=== PATIENT | female | born 1975 | race Caucasian/White ===

== ENCOUNTER 2018-01-04 07:14 | Day surgery (SDC) | payer BC ==
[2018-01-03 11:35] VITALS: BMI 38.3
[2018-01-04] MEDS ORDERED: Lidocaine 2% PF Inj 2 ML VIAL ONE (07:17)
[2018-01-04] MEDS ORDERED: Bupivacaine/Epinephrine 0.25% 30 ML VIAL ONE (07:17)
[2018-01-04] MEDS ORDERED: Bacitracin Zinc Ointment 30 gm TUBE ONE (07:17)
[2018-01-04] MEDS ORDERED: CEFAZOLIN/Water 2 GM/20 ML SYRINGE ONE (07:29)
[2018-01-04] MEDS ORDERED: Fentanyl 100 MCG/2 ML VIAL ONE (07:44)
[2018-01-04] MEDS ORDERED: Midazolam HCl 2 mg/2 ml Vial ONE (07:44)
[2018-01-04] MEDS ORDERED: Promethazine HCl 25 MG/ML VIAL ONE (09:42)
[2018-01-04] MEDS ORDERED: Lidocaine 1% PF 5 ML VIAL ONE (11:45)
[2018-01-04] MEDS ORDERED: Ondansetron HCl/PF 4 MG/2 ML Vial ONE (11:45)
[2018-01-04] MEDS ORDERED: PHENYLEPHRINE-NS 100 MCG/ML 10 ML SYRINGE ONE (11:45)
[2018-01-04] MEDS ORDERED: Dexamethasone 20 MG/5 ML VIAL ONE (11:45)
[2018-01-04] MEDS ORDERED: PROPOFOL 200 MG/20 ML VIAL ONE (11:45)
[2018-01-04] MEDS ORDERED: ePHEDrine/0.9% NaCl/PF SYRINGE 50 mg/10 ml ONE (11:45)
--- NOTE | 2018-01-06 16:44 | PDOC.OP ---
Operative Note - Operative Note Operative Note: PROCEDURE: Excision of scalp cyst 3 DATE OF PROCEDURE: 01/04/2018 SURGEON: Jaquelin Pinto M.D. PREOPERATIVE DIAGNOSES: Scalp cyst 3 POSTOPERATIVE DIAGNOSIS: Scalp cyst 3 HISTORY: Patient with several cysts of her scalp, one of which has become quite large and tender. She would like to have them excised for diagnostic and symptomatic purposes. PROCEDURE IN DETAIL: After informed consent was obtained the patient was taken to the operating she was placed in supine position and general anesthesia administered. She was positioned on her left side and prepped and draped in standard sterile fashion. The small right superior scalp cyst was excised first. Local anesthesia was infused circumferentially for a field block and an elliptical incision made. Dissection was carried down to the cyst which was dissected free circumferentially and excised. Hemostasis was obtained using Bovie electrocautery and the wound was irrigated and hemostasis confirmed. The subcutaneous tissues were reapproximated with a 3-0 Monocryl suture and the skin was closed with nylon vertical mattress sutures. Attention was then turned to the large right posterior scalp cyst which was excised in the same fashion; it was approximately 2 cm in size. Hemostasis was obtained using Bovie electrocautery and the wound was irrigated and hemostasis confirmed. The cutaneous tissues were reapproximated with 3-0 Monocryl suture and the skin was closed with nylon vertical mattress sutures. The patient was then repositioned on her right side and the left superior scalp lesion prepped and draped in standard sterile fashion. This was excised and closed in identical manner. Each wound was dressed with bacitracin. The patient was then placed back in supine position, extubated and taken to recovery in stable condition. Estimated blood loss was minimal. There were no complications. Specimens are scalp cysts 3, each of which was sent separately.
--- NOTE | 2018-01-07 11:54 | PQF ---
[facility] POST DISCHARGE CLINICAL DOCUMENTATION IMPROVEMENT CLARIFICATION FORM l Todays Date: 01/07/18 l Patients Name LANDEN LOMBARDO l l Admit Date 01/04/18 l Disch Date 01/04/18 Health Editor Name Yo Terrazas Email: [email or web address] Cell: [phone] Present Clinical Indicators - Signs / Symptoms Results and Location in Medical Record [ ] Documentation of: [ ] [ ] Documentation of: [ ] [ ] Documentation of: [ ] [ ] Documentation of: [ ] [ ] Risks [ ] [ ] [ ] Treatment [ ] PILAR CYSTS (x3) SCALP QUERY FOR EACH RESPECTIVE SIZE WITH EXCISED MARGINS OF ALL THREE (3) PILAR CYSTS OF SCALP [ ] [ ] To be completed by Physician: DR. YAHAIRA DORSEY The documentation in this patients record requires clarification to ensure coding compliance and accuracy. Check the appropriate box and include in your discharge summary. [ ] [ ] [ ] [ ] Please check this box if this does not apply to this patient [ ] Unable to determine [ ] Other diagnosis: Review the following information and exercise your independent professional judgment in responding to the clarification. Based upon the clinical findings, risk factors, and treatment, please clarify if you are treating one of the above probable or suspected diagnoses. Physician Signature: Date Time MTDD
== END 2018-01-04 11:08 | disposition home or self-care (01) ==
LOC: SDC 07:14
PROVIDERS: ATTEND Surgery
PROC: 0JB00ZZ Excision of Scalp Subcutaneous Tissue and Fascia, Open Approach (ICD-10-PCS; principal; 2018-01-04)
DX: L72.11 Pilar cyst (principal)
CPT/HCPCS: 88304; 96374; J1100; J2001; J2250; J2405; J2550; J2704; J3010

== ENCOUNTER 2018-01-25 13:04 | Outpatient (CLI) | payer BC | END 2018-01-25 13:05 | disposition home or self-care (01) | LOC: BICMAMMO 13:04 | PROVIDERS: ATTEND Family Medicine | DX: Z12.31 Encounter for screening mammogram for malignant neoplasm of breast (principal); N63.21 Unspecified lump in the left breast, upper outer quadrant | CPT/HCPCS: 77063; 77067 ==

== ENCOUNTER 2018-02-01 08:30 | Outpatient (CLI) | payer BC ==
--- NOTE | 2018-02-01 09:55 | ULT ---
LIMITED LEFT BREAST ULTRASOUND: Date: 02/01/18 PROVIDED CLINICAL HISTORY: Abnormal mammogram. FINDINGS: Limited sonographic interrogation of the left breast is performed in the region of mammographic tony rn. There is a 9.0 mm intramammary lymph node present in the region of mammographic concern, compatib le with the mammographic finding. IMPRESSION: BIRADS Category 2 - Benign findings. Return to annual screening mammography recommended. POS: OFF
== END 2018-02-01 08:31 | disposition home or self-care (01) ==
LOC: BICULT 08:30
PROVIDERS: ATTEND Family Medicine
DX: Z12.31 Encounter for screening mammogram for malignant neoplasm of breast (principal); N63.20 Unspecified lump in the left breast, unspecified quadrant
CPT/HCPCS: 87077; 87086